=== PATIENT | female | born 1960 | race Caucasian/White ===

== ENCOUNTER 2017-11-29 13:05 | Observation (INO) | payer BC ==
[~2017-11-29] VITALS: Ht 171.4 cm; Wt 86.0 kg
[~2017-11-29 13:05] MED LIST: CLONAZEPAM2 MG PO; NEXIUM40 MG PO; PREMARIN0.3 MG PO; PROZAC40 MG PO
[2017-11-29 13:26] LABS: HEMATOCRIT 41.8 % (36.0-46.0); HEMOGLOBIN 14.6 G/DL (11.9-15.5); MCH 33.2 PG (29.0-34.0); MCHC 34.9 G/DL (30.0-36.0); PLATELET COUNT 239 K/uL (156-360); RBC DIS.WIDTH-CV 12.7 % (11.8-14.6); RBC DIS.WIDTH-SD 45.1 % (39-53); WHITE BLOOD COUNT 5.6 K/uL (4.1-10.2)
[2017-11-29 13:40] LABS: CHLORIDE 106 mEq/L (99-109); POTASSIUM 4.3 mEq/L (3.7-5.4); SODIUM 142 mEq/L (136-147)
[2017-11-29 13:42] LABS: GLUCOSE 97 mg/dL (70-99)
[2017-11-29 13:46] LABS: CREATININE 0.8 mg/dL (0.6-1.3); GFR ESTIMATE (CALCULATED) > 59 mL/min/
[2017-11-29 13:47] LABS: UREA NITROGEN (BUN) 10 mg/dL (9-23)
[2017-11-29 13:55] LABS: TROP-I INTERPRETATION NEGATIVE; TROPONIN-I < 0.01 ng/mL (0.0-0.30)
[2017-11-29 15:28] LABS: TROP-I INTERPRETATION NEGATIVE; TROPONIN-I < 0.01 ng/mL (0.0-0.30)
[2017-11-29] MEDS ORDERED: KLONOPIN0.5 M1 PO (16:07)
[2017-11-29 19:20] VITALS: BP 142/75
[2017-11-29 20:33] LABS: TROP-I INTERPRETATION NEGATIVE; TROPONIN-I < 0.01 ng/mL (0.0-0.30)
[2017-11-29 23:44] VITALS: BP 103/63
[2017-11-30 02:51] LABS: TROP-I INTERPRETATION NEGATIVE; TROPONIN-I < 0.01 ng/mL (0.0-0.30)
[2017-11-30 03:34] VITALS: BP 113/76
[2017-11-30 09:02] VITALS: BP 132/75
== END 2017-11-30 12:45 | disposition home or self-care (01) ==
LOC: EME 13:05 → EDOF 15:15 → ENRESERV 15:20 → 5WEST 19:10 → ENPENDDIS 11-30 10:38 → 5WEST 11-30 12:45
PROVIDERS: Emergency Medicine; Internal Medicine
DX: R07.9 Chest pain, unspecified (principal); K21.9 Gastro-esophageal reflux disease without esophagitis; F41.0 Panic disorder [episodic paroxysmal anxiety]; M54.9 Dorsalgia, unspecified; F17.200 Nicotine dependence, unspecified, uncomplicated; Z82.49 Family history of ischemic heart disease and other diseases of the circulatory system; Z90.710 Acquired absence of both cervix and uterus; Z88.0 Allergy status to penicillin
CPT/HCPCS: 71046; 80048; 84484; 85027; 93005; 99281; 99285; G0378

== ENCOUNTER 2018-01-30 12:20 | Observation (INO) | payer BC ==
[~2018-01-30] VITALS: Ht 172.7 cm; Wt 83.5 kg
[~2018-01-30 12:20] MED LIST changes: +KLONOPIN0.5 M1 PO
[2018-01-30 13:08] LABS: HEMATOCRIT 43.4 % (36.0-46.0); HEMOGLOBIN 15.3 G/DL (11.9-15.5); MCH 33.3 PG (29.0-34.0); MCHC 35.3 G/DL (30.0-36.0); MCV 94.3 FL (83-99); PLATELET COUNT 265 K/uL (156-360); RBC DIS.WIDTH-CV 12.8 % (11.8-14.6); WHITE BLOOD COUNT 5.8 K/uL (4.1-10.2)
[2018-01-30 13:19] LABS: CHLORIDE 103 mEq/L (99-109); POTASSIUM 4.1 mEq/L (3.7-5.4); SODIUM 140 mEq/L (136-147)
[2018-01-30 13:20] LABS: GLUCOSE 92 mg/dL (70-99)
[2018-01-30 13:24] LABS: CREATININE 0.8 mg/dL (0.6-1.3); GFR ESTIMATE (CALCULATED) > 59 mL/min/
[2018-01-30 13:25] LABS: UREA NITROGEN (BUN) 8 mg/dL (9-23)
[2018-01-30 13:29] LABS: TROP-I INTERPRETATION NEGATIVE; TROPONIN-I < 0.01 ng/mL (0.0-0.30)
[2018-01-30 14:13] LABS: ALBUMIN 4.9 g/dL (3.2-4.8); D-DIMER ELISA < 150.00 ng/mLDDU (<230)
[2018-01-30 14:16] LABS: TOTAL PROTEIN 7.5 g/dL (6.4-8.3)
[2018-01-30 14:18] LABS: TOTAL BILIRUBIN 0.4 mg/dL (0.0-1.0)
[2018-01-30 14:19] LABS: ALKALINE PHOSPHATASE 86 IU/L (3-129)
[2018-01-30 14:21] LABS: AST (GOT) 23 IU/L (2-34); DIRECT BILIRUBIN 0.2 mg/dL (0.0-0.3)
[2018-01-30 14:22] LABS: ALT (GPT) 20 IU/L (3-49)
[2018-01-30 14:23] LABS: LIPASE 33 U/L (1.0-51.0)
[2018-01-30 16:40] LABS: TROP-I INTERPRETATION NEGATIVE; TROPONIN-I < 0.01 ng/mL (0.0-0.30)
[2018-01-30 20:30] VITALS: BP 125/82
[2018-01-30 23:51] VITALS: BP 95/53
[2018-01-31 04:04] VITALS: BP 98/67
[2018-01-31 06:13] LABS: TROP-I INTERPRETATION NEGATIVE; TROPONIN-I < 0.01 ng/mL (0.0-0.30)
[2018-01-31 06:15] LABS: CHLORIDE 108 MEQ/L (99-109); CREATININE 0.8 MG/DL (0.6-1.3); GFR ESTIMATE (CALCULATED) > 59 mL/min/; GLUCOSE 106 mg/dL (70-99); SODIUM 143 MEQ/L (136-147); UREA NITROGEN (BUN) 16 mg/dL (9-23)
[2018-01-31 07:49] VITALS: BP 119/70
[2018-01-31 11:50] VITALS: BP 109/67
[2018-01-31 15:16] VITALS: BP 110/70
== END 2018-01-31 15:14 | disposition home or self-care (01) ==
LOC: RME 12:20 → EME 12:20 → EDOF 17:26 → 4SOUTH 17:26 → ENRESERV 17:28 → 4SOUTH 19:44
PROVIDERS: Family Medicine; Physician Assistant
DX: R07.89 Other chest pain (principal); R00.0 Tachycardia, unspecified; R06.02 Shortness of breath; E78.5 Hyperlipidemia, unspecified; K44.9 Diaphragmatic hernia without obstruction or gangrene; F41.0 Panic disorder [episodic paroxysmal anxiety]; F32.9 Major depressive disorder, single episode, unspecified; K21.9 Gastro-esophageal reflux disease without esophagitis; Z88.0 Allergy status to penicillin; Z90.710 Acquired absence of both cervix and uterus; Z82.49 Family history of ischemic heart disease and other diseases of the circulatory system; F17.210 Nicotine dependence, cigarettes, uncomplicated
CPT/HCPCS: 71046; 71275; 80048; 80076; 83690; 84443; 84484; 85027; 85379; 93005; 99281; 99284; G0378